=== PATIENT | female | born 1995 | race Caucasian/White ===

== ENCOUNTER 2024-12-20 14:45 | Outpatient (AMB) | payer BC, SELFPAY ==
[2024-12-20 15:04] VITALS: BP 125/83; PULSE 102; RESP 16; TEMP 36.8; O2SAT 99; BMI 31.8
--- NOTE | 2024-12-20 15:04 | GYNCLNT_ITS ---
Vital Signs 12/20/24 15:04 Height 1.63 m Height Method Stated Weight 84.085 kg Weight Measurement Method Standing Scale BMI 31.8 BP 125/83 Blood Pressure Source Automatic Cuff Blood Pressure Location Left Upper Arm Position Sitting Respiration 16 Pulse 102 H Pulse Source Monitor Temp 98.2 F Temp Source Oral Pulse Oximetry (%) 99 Oxygen Delivery Method Room Air Allergies/Home Meds Allergies & Medications Allergies No Known Allergies Allergy (Verified 12/20/24 15:05) Medication Reconciliation No Known Home Medications 12/20/24 [History Confirmed 12/20/24] Intake Visit Data Collection New Patient or Established: New Patient (never been to [facility]) Reason for Visit:: Annual wellness's exam, discuss contraception Seen by Clinical Staff ONLY (RN/MA): No Saw Edge Fuser Circular Required: No Do You Feel Safe at Home: Yes Authorities Contacted: N/A PCP or OBGYN visit in last 3 months: No Hx Now: No Are you currently on any form of Control: Yes Last menstrual period: 12/06/24 Pain Present Currently: No Pain Scale Used: Bojorquez-Montes/Numerical Pain scale:: 0 Smoking Status Smoking Status: Never smoker 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 1. Little interest or pleasure in doing things: not at all 2. Feeling down, depressed, or hopeless: not at all Total score: 0 PHQ-9 3. Trouble falling or staying asleep, or sleeping too much: Not at all 4. Feeling tired or having little energy: Not at all 5. Poor appetite or overeating: Not at all 6. Feeling bad about yourself - or that you are a failure or have let yourself or your family down: Not at all 7. Trouble concentrating on things, such as reading the newspaper or watching television: Not at all 8. Moving or speaking so slowly that other people could have noticed? - Or the opposite - being so fidgety or restless that you have been moving around a lot more than usual: not at all 9. Thoughts that you would be better off or of hurting yourself in some way: Not at all Total score: 0 If you checked off any problems, how difficult have these problems made it for you to do your work, take care of things at home, or get along with other people?: not difficult at all Source: Developed by Drs. Alejandro Nunez, Donya Redman, Zion Edwards and colleagues, with an educational ambrose from [employer]. Depression screen completed yes Social History Living Situation History Marital Status: Single Lives With: Family Housing: House Housing Other:: Patient has a boyfriend. Works as an technical assistance consultant. Tobacco History Smoking Status: Never smoker Domestic Abuse History Do You Feel Safe at Home: Yes Past Medical History Past Medical History Have you ever been diagnosed with any of the following: Neurological Problems Seizures: No Migraine: Yes (Menstrual migraine. No aura.) Cardiology Problems Cardiac Arrhythmia: No Heart Murmur: No Hypercholesterolemia: No Respiratory Problems Asthma: No Pulmonary Embolism: No Sleep Apnea: No Smoking: No Stomache/Intestinal Problems Gall Bladder Disease: No Irritable Bowel: No Obesity: No Genital/Urinary Problems Kidney Stones: No Reproductive Problems Endometriosis: No Fibroids: No Genital Herpes: No Gonorrhea: No Pelvic Inflammatory Disease: No Polycystic Ovarian Syndrome: No Previous Pregnancies: No Musculoskeletal Problems Arthritis: No Rheumatoid Arthritis: No Endocrine Problems Diabetes Mellitus Type 2: No Hyperthyroidism: No Hypothyroidism: No Blood Problems Anemia: No Psychologic Problems Depression: No Anxiety: No Other Problems Hospitalization: No Autoimmune Disease: No Anesthesia Reactions: No Surgical History Additional Surgical History: Left ACL repaired in 2021 History of Present Illness HPI Narrative Patient is a 29-year-old G0 presents as a new patient for an annual exam. She does desire STD testing. She has a boyfriend and they have been dating for a while. 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 She started her cycles at age 13. They began to get heavy at about age 13-14 and patient was placed on the NuvaRing. She is happy on the NuvaRing although she is reporting that when she is in her ring free week that she does get migraines. She was wondering if she should change her control. She never gets an aura with her migraines and she is otherwise happy on the NuvaRing. Her cycles are light and not crampy. Review of Systems Review of Systems Narrative Review of Systems: No dysuria, no dysmenorrhea, no pelvic pain ,no foul vaginal discharge. No history of abnormal Pap smears. No pregnancies. She does get menstrual migraines and had menorrhagia and dysmenorrhea when she was not on control. Systems Reviewed: All systems reviewed, normal except as documented Exam General General Appearance: alert, in no apparent distress, comfortable, cooperative, healthy appearing and well groomed Neck Neck exam: Present normal inspection, full ROM and trachea midline Chest Chest inspection: Present normal inspection and symmetric chest wall rise Resp Respiratory exam: Present normal lung sounds bilaterally Card Cardiovascular exam: Present regular rate, normal rhythm and normal heart sounds Abdominal Abdominal exam: Present soft and normal bowel sounds External exam: Present normal external exam Speculum exam: Present normal speculum exam Bimanual exam: Present normal bimanual exam Extremities Extremities exam: Present normal inspection and full ROM Psych Psychiatric exam: Present normal affect and normal mood Skin Skin exam: Present warm, dry, intact and normal color Assessment & Plan Diagnosis / Problem List (1) Women's annual routine gynecological examination: Status: Acute Assessment and Plan: Pap with cotesting to HPV performed breast exam done and encouraged. STD testing ordered at patient's request. GC chlamydia and trichomoniasis ordered off Pap smear. Blood tested for HIV syphilis and hepatitis. (2) Contraceptive education: Status: Acute Assessment and Plan: Patient desires to stay on the NuvaRing for contraception (3) Menstrual migraine: Status: Acute Qualifiers: Status migrainosus presence: without status migrainosus Intractability: not intractable Qualified Code(s): G43.829 - Menstrual migraine, not intractable, without status migrainosus Assessment and Plan: Patient to take NuvaRing for 3 months continuously, replace every 21 days x 3 months. Order estrogen patch 0.[address] the week she is ring free Office Procedures OB Clinic LOC & Office Proc's Nursing/Assessment Patient Status: Established Patient OB Clinic Nursing Assessment: BP Monitoring, Medication Reconciliation, Update PMH in EMR and Vital Signs OB Clinic Coordination of Care: Consent,records obtained, informed consent, Education Simp Pt/Fam, Lab and Imaging orders and Staff clarify orders Miscellaneous Interventions: Pelvic/Pap Smear Set up Established Patient Charge Established Patient Point Assignment: 110 Established Patient Point Charge: EP Level 3 (80-115) In Clinic Procedures Pap Smear: Yes BASEBALL PITCHER: Papsmear Pap Smear Procedure Chaparone in room during procedure?: No Pre-op diagnosis general: Annual wellness exam Post-op diagnosis procedure note: Same Procedure Notes:: Pap with reflex testing to HPV performed, GC chlamydia and trichomoniasis also ordered on Pap. Papsmear completed: yes
== END 2024-12-20 16:11 | disposition home or self-care (01) ==
LOC: HODSOBC 14:45
PROVIDERS: PCP Family Medicine; Referring Provider Family Medicine; Supervising Provider Obstetrics & Gynecology; Visit Provider Obstetrics & Gynecology
DX: Z01.419 Encounter for gynecological examination (general) (routine) without abnormal findings (principal); Z30.44 Encounter for surveillance of vaginal ring hormonal contraceptive device; G43.829 Menstrual migraine, not intractable, without status migrainosus
CPT/HCPCS: 99213; Q0091; G0463

== ENCOUNTER → 2024-12-20 | Outpatient (CLI) | payer BC, SELFPAY ==
[2024-12-20 18:03] LABS: Hepatitis B Surface Ab Reactive (Immune) (Immune)
[2024-12-20 18:13] LABS: Syphilis Nonreactive (Nonreactive)
[2024-12-20 18:28] LABS: HIV (1&2) Antibody Rapid Non-Reactive
== END | disposition home or self-care (01) ==
LOC: COPL 16:20
PROVIDERS: PCP Family Medicine; Referring Provider Obstetrics & Gynecology; Visit Provider Obstetrics & Gynecology
DX: Z20.2 Contact with and (suspected) exposure to infections with a predominantly sexual mode of transmission (principal)
CPT/HCPCS: 36415; 86703; 86706; 86780